=== PATIENT | male | born 1985 | race Caucasian/White ===

== ENCOUNTER 2016-12-21 15:21 | Emergency (ER) | payer SELFPAY ==
[~2016-12-21] VITALS: Ht 177.8 cm; Wt 86.2 kg
== END 2016-12-21 17:05 | disposition home or self-care (01) ==
LOC: SED 15:21
DX: T40.1X1A Poisoning by heroin, accidental (unintentional), initial encounter (principal); F15.10 Other stimulant abuse, uncomplicated
CPT/HCPCS: 99284